=== PATIENT | male | born 1945 | race Caucasian/White ===

== ENCOUNTER 2016-09-04 10:18 | Emergency (ER) | payer OTHER ==
--- NOTE | 2016-09-09 10:38 | ER ---
ADMIT: 09/04/2016 RM/LOC: ER [facility] MR#: [id number] [facility] [address] [place], [place] [id number] NORI JACOBSEN [address] [place] [address] Emergency Room Report SEX: M AGE: 71 : 1945 DATE: 09/04/2016 BRIEF ADDENDUM: Please see my T-sheet for complete review of systems, past medical history, and physical exam. CHIEF COMPLAINT: Left upper extremity weakness. HISTORY OF PRESENT ILLNESS: This is a pleasant 71-year-old male who comes to us after he was [place] today and had an episode of some dizziness and left sided numbness and weakness. States he was reaching for a phone when he kind of felt dizzy and had some numbness and weakness in his left upper extremity specifically. Denies any lower extremity involvement. This occurred about 9:45 this morning. States it is gone now in the ED. He took a [place] as he did not want to accrue the ambulance cost. He states he initially felt off kind of balance. He is typically alert and oriented x4, walks and without assistance. Denies any fever, chills, chest pain, back pain, headache, fainting, seizures, or altered mental status. He does have a past medical history of back pain and seizures. He does typically use Norvasc 10 mg daily, however, he has not been taking this April. COURSE IN THE EMERGENCY ROOM: The patient was seen and examined. Initial blood pressure 204/40. No acute distress. He is alert. No obvious upper extremity weakness or paresthesias noted on exam. Lower extremity strength is equal bilaterally. Sensation also intact. Cranial nerves intact. Did get a CT head, negative for anything acute. CBC; white count 8.5, hemoglobin 15.4, hematocrit 45, and platelets 234. Sodium 139, potassium 4.3, CO2 of 31, BUN 15, glucose 141, creatinine 1.3, AST 24, and ALT 32. He was given 5 mg of Norvasc prior to discharge. IMPRESSION: 1. Hypertension. 2. Left arm paresthesia and weakness, resolved. DISPOSITION: [facility] 2 [facility]. He is to resume his blood pressure medication as prescribed. Certainly return with any worsening signs or symptoms. Return home and rest. Questions sought and answered to the best of my ability and to the patient's satisfaction. Discharged in stable condition. JENNIFER Haider / Gray Samuels MD / modl JOB #: [id number] CC: Gray Samuels MD, Attending Physician [facility] Physician, Family Physician
== END 2016-09-04 12:30 | disposition home or self-care (01) ==
LOC: ER 10:18
DX: R53.1 Weakness (principal); I10 Essential (primary) hypertension; Z88.8 Allergy status to other drugs, medicaments and biological substances; Z79.899 Other long term (current) drug therapy